=== PATIENT | female | born 1995 | race Hispanic/Latino ===

== ENCOUNTER 2019-10-19 00:43 | Emergency (ER) | payer MEDICAID, OTHER | END 2019-10-19 02:47 | disposition home or self-care (01) | LOC: EDH 00:43 | DX: J10.1 Influenza due to other identified influenza virus with other respiratory manifestations (principal) | CPT/HCPCS: 87804 ==

== ENCOUNTER 2020-03-01 16:29 | Inpatient (IN) | payer OTHER, SELFPAY ==
[2020-03-01 19:21] LABS: BASOPHILS % (AUTO) 0.5 % (0.0-5.0); EOSINOPHILS % (AUTO) 0.9 % (0.0-8.0); LYMPHOCYTES % (AUTO) 20.7 % (21.0-51.0); MEAN CORPUSCULAR HEMOGLOBIN 28.4 pg (27.0-33.0); MEAN CORPUSCULAR HGB CONC 33.8 g/dL (32.0-36.0); MEAN CORPUSCULAR VOLUME 84.1 fL (79-99); MONOCYTES % (AUTO) 5.3 % (3.0-13.0); NEUTROPHILS % (AUTO) 72.2 % (40.0-77.0); PLATELET COUNT (AUTO) 270 K/uL (130-400); RED BLOOD CELL COUNT(AUTO) 4.64 MIL/uL (4.00-5.50); RED CELL DISTRIBUTION WIDTH 13.4 % (11.0-15.5); WHITE BLOOD COUNT (AUTO) 10.5 K/uL (4.8-10.8)
[2020-03-01 19:24] LABS: CREATININE 0.7 mg/dL (0.5-1.5); POTASSIUM 3.5 mmol/L (3.5-5.1)
[2020-03-01 19:29] LABS: ALBUMIN 4.2 g/dL (3.5-5.0); BILIRUBIN,TOTAL 0.8 mg/dL (0.2-1.0); TOTAL PROTEIN, SERUM 8.6 g/dL (6.0-8.3)
[2020-03-01] MEDS ORDERED: ACETAMINOPHEN EXTRA STRENGTH 500 MG TABLET ONE (20:15)
[2020-03-01 20:16] LABS: APPEARANCE,URINE Cloudy (CLEAR); BILIRUBIN,URINE Negative (NEGATIVE); COLOR,URINE Dark Yellow (YELLOW); GLUCOSE, URINE (UA) Negative (NEGATIVE); KETONES,URINE Trace mg/dL (NEGATIVE); LEUKOCYTE ESTERASE ,URINE Moderate (NEGATIVE); NITRATE,URINE Negative (NEGATIVE); OCCULT BLOOD,URINE Negative (NEGATIVE); PH,URINE 5.5 (5.0-8.0); PROTEIN,URINE Negative (NEGATIVE)
[2020-03-01 20:18] LABS: HCG,QUAL RESULT NEGATIVE (NEGATIVE)
[2020-03-01 20:27] LABS: BACTERIA,URINE Few /HPF (None Seen); MUCUS,URINE Moderate LPF (None Seen); SQUAMOUS EPITHELIAL CELL,UR Moderate /HPF (0-2)
[2020-03-01] MEDS ORDERED: IOHEXOL-350 75 ML VIAL IV ONE (20:34)
[2020-03-01] MEDS ORDERED: CLINDAMYCIN 600 MG/D5% WATER 50 ML IV ONE (21:56)
[2020-03-01] MEDS ORDERED: CEFTRIAXONE SODIUM 1 GM ONE (21:56)
[2020-03-01] MEDS ORDERED: DEXAMETHASONE SOD PHOSPHATE 10MG/ML 1ML VIAL ONE (21:56)
[2020-03-01] MEDS: SODIUM CHLORIDE 0.9% 1000ML 1,000 ML IV SCH (22:05)
[2020-03-01] MEDS ORDERED: KETOROLAC TROMETHAMINE 15MG/ML IV PRN (22:15)
[2020-03-01] MEDS: CLINDAMYCIN 600 MG/D5% WATER 50 ML IV SCH (22:15)
[2020-03-01] MEDS ORDERED: ACETAMINOPHEN 325 MG TAB PO PRN ×2 (22:15)
[2020-03-01] MEDS ORDERED: LACTULOSE 20 GM/30 ML UDCUP PO PRN (22:15)
[2020-03-02] MEDS ORDERED: ACETAMINOPHEN 325 MG TAB ONE ×2 (00:24→14:58)
[2020-03-02] MEDS ORDERED: CLINDAMYCIN 600 MG/D5% WATER 50 ML IV ONE ×3 (06:00→16:34)
[2020-03-02] MEDS: CLINDAMYCIN 600 MG/D5% WATER 50 ML IV SCH ×3 (06:15→22:15)
[2020-03-02 06:39] LABS: BASOPHILS % (AUTO) 0.3 % (0.0-5.0); HEMATOCRIT 38.8 % (36-48); LYMPHOCYTES % (AUTO) 9.1 % (21.0-51.0); MEAN CORPUSCULAR HEMOGLOBIN 28.7 pg (27.0-33.0); MEAN CORPUSCULAR HGB CONC 34.3 g/dL (32.0-36.0); MEAN CORPUSCULAR VOLUME 83.8 fL (79-99); MONOCYTES % (AUTO) 0.8 % (3.0-13.0); NEUTROPHILS % (AUTO) 89.5 % (40.0-77.0); PLATELET COUNT (AUTO) 282 K/uL (130-400); RED BLOOD CELL COUNT(AUTO) 4.63 MIL/uL (4.00-5.50); RED CELL DISTRIBUTION WIDTH 13.2 % (11.0-15.5); WHITE BLOOD COUNT (AUTO) 10.9 K/uL (4.8-10.8)
[2020-03-02 06:46] LABS: CREATININE 0.6 mg/dL (0.5-1.5); POTASSIUM 4.5 mmol/L (3.5-5.1)
[2020-03-02] MEDS: SODIUM CHLORIDE 0.9% 1000ML 1,000 ML IV SCH ×2 (08:05→18:05)
[2020-03-02] MEDS ORDERED: ENOXAPARIN SODIUM 40 MG/0.4 ML SYRINGE SQ ONE (08:12)
[2020-03-02] MEDS ORDERED: FAMOTIDINE 20MG TAB 20 MG TAB ONE (08:12)
[2020-03-02] MEDS: ENOXAPARIN SODIUM 40 MG/0.4 ML SYRINGE SQ SCH (09:00)
[2020-03-02] MEDS: FAMOTIDINE 20MG TAB 20 MG TAB PO SCH ×2 (09:00→21:00)
--- NOTE | 2020-03-02 12:27 | NUR ---
DCP: HOME Sw spoke to pt who states she lives with her 2 kids ages 3 and 1. Her mother Vernell Puente is ER contact [phone]. Pt currently not working, is independent, no DME or HH services. PCP is Ze Muñiz and she uses [facility] for meds. Pt denies dc needs. [place] Addendum: 03/02/20 at 1229 by MANDI FERNANDEZ SS Amended: Links added.
[2020-03-02] MEDS ORDERED: FAMOTIDINE/PF 20 MG/2 ML VIAL IV ONE (22:47)
[2020-03-03] MEDS: SODIUM CHLORIDE 0.9% 1000ML 1,000 ML IV SCH ×2 (04:05→11:14)
[2020-03-03 05:02] LABS: BASOPHILS % (AUTO) 0.5 % (0.0-5.0); EOSINOPHILS % (AUTO) 0.5 % (0.0-8.0); HEMATOCRIT 35.7 % (36-48); MEAN CORPUSCULAR HEMOGLOBIN 28.4 pg (27.0-33.0); MEAN CORPUSCULAR HGB CONC 33.3 g/dL (32.0-36.0); MEAN CORPUSCULAR VOLUME 85.2 fL (79-99); MONOCYTES % (AUTO) 4.6 % (3.0-13.0); NEUTROPHILS % (AUTO) 70.2 % (40.0-77.0); PLATELET COUNT (AUTO) 234 K/uL (130-400); RED BLOOD CELL COUNT(AUTO) 4.19 MIL/uL (4.00-5.50); RED CELL DISTRIBUTION WIDTH 13.4 % (11.0-15.5); WHITE BLOOD COUNT (AUTO) 12.5 K/uL (4.8-10.8)
[2020-03-03 05:13] LABS: CREATININE 0.6 mg/dL (0.5-1.5); POTASSIUM 3.5 mmol/L (3.5-5.1)
[2020-03-03] MEDS: CLINDAMYCIN 600 MG/D5% WATER 50 ML IV SCH ×3 (06:15→22:13)
[2020-03-03] MEDS: FAMOTIDINE 20MG TAB 20 MG TAB PO SCH ×2 (09:00→22:13)
[2020-03-03] MEDS: ENOXAPARIN SODIUM 40 MG/0.4 ML SYRINGE SQ SCH (09:00)
[2020-03-03] MEDS ORDERED: ENOXAPARIN SODIUM 40 MG/0.4 ML SYRINGE SQ ONE (09:25)
[2020-03-03] MEDS ORDERED: FAMOTIDINE/PF 20 MG/2 ML VIAL IV ONE (09:25)
[2020-03-03 10:41] VITALS: BP 100/58
[2020-03-03] MEDS ORDERED: BENZOCAINE/MENTH/CETYLPYRD CL 1 EACH LOZENGE MM PRN (11:15)
[2020-03-03 12:16] VITALS: BP 106/62
[2020-03-03] MEDS: ONDANSETRON HCL 4 MG/2 ML VIAL IV PRN (15:47)
[2020-03-03 17:08] VITALS: BP 114/70
[2020-03-03 19:15] VITALS: BP 109/61
[2020-03-03 23:45] VITALS: BP 101/61
[2020-03-04 03:15] VITALS: BP 96/54
[2020-03-04 04:18] LABS: BASOPHILS % (AUTO) 0.7 % (0.0-5.0); EOSINOPHILS % (AUTO) 1.3 % (0.0-8.0); HEMATOCRIT 36.2 % (36-48); LYMPHOCYTES % (AUTO) 30.5 % (21.0-51.0); MEAN CORPUSCULAR HEMOGLOBIN 28.2 pg (27.0-33.0); MEAN CORPUSCULAR HGB CONC 33.1 g/dL (32.0-36.0); MONOCYTES % (AUTO) 3.8 % (3.0-13.0); NEUTROPHILS % (AUTO) 63.3 % (40.0-77.0); PLATELET COUNT (AUTO) 267 K/uL (130-400); RED BLOOD CELL COUNT(AUTO) 4.26 MIL/uL (4.00-5.50); RED CELL DISTRIBUTION WIDTH 13.7 % (11.0-15.5); WHITE BLOOD COUNT (AUTO) 10.1 K/uL (4.8-10.8)
[2020-03-04 04:28] LABS: CREATININE 0.7 mg/dL (0.5-1.5); POTASSIUM 3.8 mmol/L (3.5-5.1)
[2020-03-04] MEDS: SODIUM CHLORIDE 0.9% 1000ML 1,000 ML IV SCH ×2 (05:24→10:50)
[2020-03-04] MEDS: CLINDAMYCIN 600 MG/D5% WATER 50 ML IV SCH ×2 (05:24→14:26)
[2020-03-04] MEDS: ONDANSETRON HCL 4 MG/2 ML VIAL IV PRN (05:24)
[2020-03-04] MEDS ORDERED: CEFTRIAXONE SODIUM 1 GM IVP SCH (06:00)
[2020-03-04 07:40] VITALS: BP 100/59
[2020-03-04 10:39] VITALS: BP 98/53
[2020-03-04] MEDS: ENOXAPARIN SODIUM 40 MG/0.4 ML SYRINGE SQ SCH (10:50)
[2020-03-04] MEDS: FAMOTIDINE 20MG TAB 20 MG TAB PO SCH (10:50)
[2020-03-04 11:42] LABS: HEMOGLOBIN A1C 5.8 % (4.0-6.0)
--- NOTE | 2020-03-04 15:15 | NUR ---
EXPECTED DC DISPO TO HOME WHEN CLEARED RECOMMENDATIONS FOR PO ABX HAVE BEEN GIVEN Addendum: 03/04/20 at 1516 by AMEENA BUTTS RN CM Amended: Links added.
[2020-03-04 15:54] VITALS: BP 97/52
[2020-03-04] MEDS ORDERED: CLIN300C9 PO (17:18)
== END 2020-03-04 17:28 | disposition home or self-care (01) | DRG 158 ==
LOC: EDH 16:29 → EDHIP 16:30 → UNDOADMIN 22:05 → 3AH 22:47 → EDHIP 22:47 → 3AH 23:28 → EDHIP 23:28 → 3BH 03-03 07:02
PROVIDERS: ADMIT Hospitalist; ATTEND Hospitalist
DX: K12.2 Cellulitis and abscess of mouth (principal); L03.221 Cellulitis of neck; B95.62 Methicillin resistant Staphylococcus aureus infection as the cause of diseases classified elsewhere; Z20.828 Contact with and (suspected) exposure to other viral communicable diseases; E66.9 Obesity, unspecified; Z90.49 Acquired absence of other specified parts of digestive tract
CPT/HCPCS: 36415; 70491; 80048; 80053; 81001; 81025; 83036; 83605; 84702; 85025; 85378; 86140; 87040; 87070; 87076; 87077; 87088; 87186; 87486; 87581; 87633; 87635; 87798; 87880; G0378; J0696; J1100; J1650; J1885; J2405; J3490; J7030; Q9967